=== PATIENT | male | born 2005 | race African-American/Black ===

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

== ENCOUNTER 2024-02-08 13:20 | Emergency (ER) | payer MEDICAID, OTHER ==
[~2024-02-08] VITALS: Ht 167.6 cm; Wt 110.0 kg
[2024-02-08 13:30] VITALS: BP 146/96; PULSE 91; RESP 16; TEMP 98.1; O2SAT 100
[2024-02-08] MEDS: IBUPROFEN 600MG TABLET PO ONE (14:56)
[2024-02-08 17:40] LABS: ADD RBC MORPHOLOGY YES; BASOPHILS % 0.9 % (0.0-2.0); DIFFERENTIAL COMMENT 1; EOSINOPHILS % 2.8 % (0.0-5.0); HEMATOCRIT. 43.4 % (42.0-52.0); HEMOGLOBIN. 13.5 g/dL (14.0-18.0); LYMPHOCYTES % 26.5 % (20.0-50.0); MEAN CORPUSCULAR VOLUME 67.8 fL (80.0-94.0); MEAN PLATELET VOLUME 7.3 fl (7.4-10.4); MONOCYTES % 7.9 % (2.0-8.0); NEUTROPHILS % 61.9 % (40.0-76.0); PLATELET 362 x1000/uL (130-400); RED CELL DISTRIBUTION WIDTH 15.4 % (11.6-14.6); WHITE BLOOD COUNT 12.5 x1000/uL (4.5-11.0)
[2024-02-08 17:58] LABS: CHLORIDE 108 mEq/L (98-107); POTASSIUM 3.8 mEq/L (3.5-5.1); SODIUM 141 mEq/L (136-145)
[2024-02-08 17:59] LABS: CALCIUM 10.6 mg/dL (8.7-10.4); CARBON DIOXIDE 24 mEq/L (21-32)
[2024-02-08 18:04] LABS: CREATININE 0.9 mg/dL (0.6-1.3); GLUCOSE 85 mg/dL (70-105); UREA NITROGEN BLOOD 7 mg/dL (9-23)
[2024-02-08 18:05] LABS: ALBUMIN 4.6 g/dL (3.2-4.8)
[2024-02-08 18:06] LABS: ALANINE AMINOTRANSFERASE 111 IU/L (10-49); ASPARTATE AMINOTRANSFERASE 65 IU/L (<34); BILIRUBIN TOTAL 0.3 mg/dL (0.1-1.0); PROTEIN TOTAL 8.2 g/dL (6.0-8.3)
[2024-02-08 18:24] LABS: HYPOCHROMASIA 2+; MICROCYTOSIS 3+; PLATELET ESTIMATE NORMAL
[2024-02-08 18:25] LABS: ANISOCYTOSIS 1+
[2024-02-08] MEDS ORDERED: IBUP-2029 MT (19:20)
[2024-02-08] MEDS ORDERED: IOHEXOL-300 100 ML BOTTLE ONE (23:40)
== END 2024-02-08 19:49 | disposition home or self-care (01) ==
LOC: ER 13:20
DX: M79.602 Pain in left arm (principal); R10.12 Left upper quadrant pain; M79.605 Pain in left leg; J45.909 Unspecified asthma, uncomplicated; G31.89 Other specified degenerative diseases of nervous system; V49.49XA Driver injured in collision with other motor vehicles in traffic accident, initial encounter; Y93.89 Activity, other specified; Y92.89 Other specified places as the place of occurrence of the external cause; Y99.8 Other external cause status
CPT/HCPCS: 99285; 70450; 80053; 85025; 36415; 73502; 73552; 73000; 73030; 73080; 74177; Q9967